=== PATIENT | female | born 1985 | race Caucasian/White ===

== ENCOUNTER → 2021-08-20 15:05 | Outpatient (CLI) | payer BC, SELFPAY ==
--- NOTE | 2021-08-20 09:00 | TONS_PTH ---
PATIENT: DAGO PEREA LOC: [facility]#:[id number] AGE/SX: 40/F ROOM: RE08/20/[address]: Dr. Ronni Marin MD : 1985 BED: DIS: SPEC #: [id number] RECD: 08/20/21 14:56 STATUS: KRISTEN AV #: [id number] KELSEY: 08/20/21 09:[address]: Ronni Marin DEPT: SURGICAL PATHOLOGY RECD BY: Katina Fajardo ENTERED: 08/21/21 09:30 SP TYPE: TONSILS OTHR DR: No Primary Care Phys [facility] Tissues: Tonsil, NOS Procedures: Surgery Specimen Level III HEADER OPERATION: Tonsillectomy PRE-OP DIAGNOSIS: Chronic tonsillitis TISSUE SUBMITTED: Tonsils (right pinned) MICROSCOPIC DIAGNOSIS Bilateral tonsils, tonsillectomy: Reactive lymphoid hyperplasia, consistent with chronic tonsillitis. Focal actinomyces colonization. SJ:jasvir 08/22/2021 MICROSCOPIC DESCRIPTION Slides are reviewed. GROSS DESCRIPTION Received is one container labeled with the patient's name and designated tonsils - pin on right are two tonsils that in aggregate weigh 11.9 gm. The right tonsil has a pin on it and measures 3.5 x 2 x 1.5 cm. The left tonsil measures 4 x 2 x 2 cm. Both tonsils are similar in appearance. The external surfaces are pink-abdi, smooth, glistening and somewhat lobulated. Focally they are hemorrhagic, granular and bear cautery artifact. Serial cross sections through the tonsils reveal normal tonsillar architecture. Sections are submitted in two cassettes as follows: 1 - right tonsil, 2 - left tonsil. / WU:jasvir 08/21/21 TC:3 CPT: 69055 x2
== END ==
PROVIDERS: Referring Provider Otolaryngology; Visit Provider Otolaryngology
DX: J35.01 Chronic tonsillitis (principal)
CPT/HCPCS: 88304